=== PATIENT | female | born 1970 | race Caucasian/White ===

== ENCOUNTER → 2016-05-23 | Outpatient (CLI) | payer BC ==
--- NOTE | 2016-05-23 11:47 | Diagnostic Imaging Report ---
PROCEDURE: US abdomen complete. TECHNIQUE: Multiple real-time grayscale images were obtained over the abdomen in various projections. INDICATION: Right upper quadrant pain. Diarrhea. COMPARISON: 10/22/2013. FINDINGS: The liver shows no focal abnormality. It is normal size. Intrahepatic bile ducts are normal. CBD is normal at 2-3 mm. Hepatopetal flow is present in the main portal vein. Gallbladder is negative. The pancreas, head and body are negative. The tail is obscured by bowel gas. The aorta and inferior vena cava are within normal limits. The right kidney is 11.3 cm in length and left is 10 cm in length. No solid renal masses identified. There is no hydronephrosis. No free fluid is identified. The spleen is 12 cm in length which was normal. IMPRESSION: 1. No significant abnormality is identified. Dictated by: Dictated on workstation # [id number]
== END ==
LOC: RAD 08:21
PROVIDERS: ATTEND Family Medicine
DX: R10.11 Right upper quadrant pain (principal); R19.7 Diarrhea, unspecified
CPT/HCPCS: 76700

== ENCOUNTER → 2016-05-27 | Outpatient (CLI) | payer BC ==
--- NOTE | 2016-05-27 15:10 | Diagnostic Imaging Report ---
INDICATION: Right upper quadrant pain and diarrhea. EXAMINATION: HIDA scan 05/27/2016. FINDINGS: After uneventful administration of 8.1 mCi of technetium-99m mebrofenin, subsequent imaging was performed. There is homogeneous uptake throughout the liver. The gallbladder is seen within 60 minutes. Subsequent administration of one can of Ensure was then administered for evaluation of the ejection fraction. Ejection fraction is calculated at 63.7%. IMPRESSION: 1. No obstructive process appreciated. Normal ejection fraction. Dictated by: Dictated on workstation # [id number]
== END ==
LOC: RAD 08:10
PROVIDERS: ATTEND Family Medicine
DX: R10.11 Right upper quadrant pain (principal); R19.7 Diarrhea, unspecified
CPT/HCPCS: 78226; A9537; J2805

== ENCOUNTER → 2016-06-13 | Outpatient (CLI) | payer BC | LOC: RAD 11:22 | PROVIDERS: ATTEND Family Medicine | DX: M54.2 Cervicalgia (principal) | CPT/HCPCS: 72141 ==